=== PATIENT | female | born 1955 | race Caucasian/White ===

== ENCOUNTER 2022-02-04 06:00 | Day surgery (SDC) | payer OTHER ==
[2022-01-26 17:08] VITALS: BMI 26.2
[~2022-02-04 06:00] MED LIST: CEFAZOLIN 2 GM in DEXTROSE 5%-WATER - 50 ML IVPB ONE
[2022-02-04] MEDS ORDERED: FENTANYL CITRATE/PF 50 MCG/ML VIAL ONE (07:30)
[2022-02-04] MEDS ORDERED: MIDAZOLAM HCL 2 MG/2 ML SINGLE DOSE VIAL ONE (07:30)
[2022-02-04] MEDS ORDERED: BUPIVACAINE LIPOSOME/PF (EXPAREL) 266 MG/20 ML VIAL ONE (07:30)
[2022-02-04] MEDS ORDERED: BUPIVACAINE HCL/PF 0.5% (5MG/ML) 10 ML VIAL ONE (07:31)
[2022-02-04] MEDS ORDERED: ONDANSETRON 4 MG/2 ML VIAL ONE (08:03)
[2022-02-04] MEDS ORDERED: ceFAZolin SODIUM 1 GM VIAL ONE (08:03)
[2022-02-04] MEDS ORDERED: TRANEXAMIC ACID 1000 MG/10 ML VIAL ONE (08:03)
[2022-02-04] MEDS ORDERED: DEXAMETHASONE SOD PHOSPHATE 4 MG/1 ML VIAL ONE (08:03)
[2022-02-04] MEDS ORDERED: PROPOFOL 20 ML ONE (08:11)
[2022-02-04] MEDS ORDERED: LACTATED RINGERS SOLUTION 1,000 ML IV SCH ×2 (09:45→10:00)
[2022-02-04] MEDS ORDERED: ONDANSETRON 4 MG/2 ML VIAL IVPUSH PRN (09:48)
[2022-02-04] MEDS ORDERED: PATIENT'S OWN MEDICATION (NON-FORMULARY) (Albuterol Sulfate [Proair Digihaler] 90 MCG Aer. IH PRN (09:48)
[2022-02-04] MEDS ORDERED: ACETAMINOPHEN 1000 MG/100 ML BAG IVPB ONE (09:49)
[2022-02-04] MEDS ORDERED: oxyCODONE HCL 5 MG TABLET PO PRN ×2 (09:49)
[2022-02-04] MEDS ORDERED: MULTIVITAMINS (DAILY MVI) TABLET (FP) PO SCH (10:00)
[2022-02-04] MEDS ORDERED: VIT K1 PO SCH (10:00)
[2022-02-04] MEDS ORDERED: CALCIUM CARB PO SCH (10:00)
[2022-02-04] MEDS ORDERED: PATIENT'S OWN MEDICATION (NON-FORMULARY) (Cyanocobalamin (Vitamin B-12) [Vitamin B12] 2,50 PO SCH (10:00)
[2022-02-04] MEDS ORDERED: ASCORBIC ACID 500 MG TABLET (FP) PO SCH (10:00)
[2022-02-04] MEDS ORDERED: CITALOPRAM HYDROBROMIDE 20 MG TABLET PO SCH (10:00)
[2022-02-04] MEDS ORDERED: SENNOSIDES/DOCUSATE COMBO (SENNA PLUS) TABLET (UD) PO SCH (10:00)
[2022-02-04] MEDS ORDERED: [UNRECOGNIZED DRUG - OTHER] PO SCH (10:00)
[2022-02-04] MEDS ORDERED: HYDROCHLOROTHIAZIDE 12.5 MG CAPSULE (FP) PO SCH (10:00)
[2022-02-04] MEDS ORDERED: oxyCODONE HCL 10 MG SUSTAINED ACTING TABLET PO SCH (10:00)
[2022-02-04] MEDS ORDERED: VITAMIN D3 PO SCH (10:00)
[2022-02-04] MEDS ORDERED: ASPIRIN COATED 81 MG TABLET.EC PO SCH (10:00)
[2022-02-04] MEDS ORDERED: ALBUTEROL SO4 HFA INHALER IH PRN (10:10)
[2022-02-04] MEDS ORDERED: KETOROLAC TROMETHAMINE 30 MG/1 ML VIAL IVPUSH SCH (11:00)
[2022-02-04 14:20] VITALS: BP 113/44; PULSE 48; TEMP 97.6
[2022-02-04] MEDS ORDERED: CEFAZOLIN 2 GM in DEXTROSE 5%-WATER - 50 ML IVPB SCH (16:00)
[2022-02-04] MEDS ORDERED: ACETAMINOPHEN 500 MG TABLET (FP) PO SCH (18:00)
[2022-02-04] MEDS ORDERED: PATIENT'S OWN MEDICATION (NON-FORMULARY) (Omeprazole Magnesium [Omeprazole Magnesium] 20 M PO SCH (22:00)
[2022-02-04] MEDS ORDERED: PANTOPRAZOLE 40 MG TABLET PO SCH (22:00)
[2022-02-04] MEDS ORDERED: MONTELUKAST NA 10 MG TABLET PO SCH (22:00)
[2022-02-05] MEDS ORDERED: CYANOCOBALAMIN 1,000 MCG TABLET (FP) PO SCH (10:00)
== END 2022-02-04 15:41 | disposition home or self-care (01) ==
LOC: FASUSAT 06:00 → FM/S 10:57 → FASUSAT 15:41
PROVIDERS: ATTEND Orthopaedic Surgery
PROC: 0QQF0ZZ Repair Left Patella, Open Approach (ICD-10-PCS; principal; 2022-02-04 08:22)
DX: T84.84XA Pain due to internal orthopedic prosthetic devices, implants and grafts, initial encounter (principal); Y79.3 Surgical instruments, materials and orthopedic devices (including sutures) associated with adverse incidents; Y92.9 Unspecified place or not applicable; Z96.659 Presence of unspecified artificial knee joint
CPT/HCPCS: 94760; 97010-GP; 97116-GP; 97161-GP